=== PATIENT | male | born 1950 | race Caucasian/White ===

== ENCOUNTER 2020-06-15 06:28 | Emergency (ER) | payer OTHER, MEDICARE ==
[~2020-06-15] VITALS: Ht 172.7 cm; Wt 90.7 kg
[~2020-06-15 06:28] MED LIST: GLIP5TAB26 PO; HYDR25TA4 PO; LOSA25TA3 PO; PANT40TA45 PO; PRAM0.5T3 PO
[2020-06-15 06:36] VITALS: BP_SYST 134
--- NOTE | 2020-06-15 06:36 | NUR ---
Placed in room 8 . Placed on wood club neck whipper, blood pressure machine and pulse oximeter. To gown for exam. Side rails up.
--- NOTE | 2020-06-15 06:38 | NUR ---
ER at bedside examining patient.
--- NOTE | 2020-06-15 06:40 | NUR ---
Pt presents to ER for sob and low O2 saturation. Pt reports testing positive for COVID19 11 days ago. Pt states checking O2 saturation at home and has been 90-94 %, as per PCP recommended pt to go to ER. Pt reports SOB w/ activity, able to speak full sentence, AxOx4. Pt reports his of asthma and diabetes.
--- NOTE | 2020-06-15 06:46 | NUR ---
RT called for neb treatment.
--- NOTE | 2020-06-15 06:50 | NUR ---
tire and lube technician at bedside.
[2020-06-15] MEDS ORDERED: FURO-149 PO (07:05)
[2020-06-15] MEDS ORDERED: ZINC220T4 PO (07:05)
[2020-06-15] MEDS ORDERED: MONT10TA22 (07:05)
[2020-06-15] MEDS ORDERED: DULA0.75 SQ (07:08)
[2020-06-15] MEDS ORDERED: LOSA50TA3 PO (07:09)
--- NOTE | 2020-06-15 07:09 | NUR ---
Medication reconciliation completed with information provided by patient. Any prior medication reconciliation on file was reviewed and corrected.
--- NOTE | 2020-06-15 07:14 | NUR ---
Patient given written and verbal discharge instructions and verbalizes understanding. ER MD discussed with patient the results and treatment provided. Patient in stable condition. ID arm band removed. Rx of dexamethasone given. Patient educated on pain management and to follow up with PMD. Opportunity for questions provided and answered. Medication side effect fact sheet provided.
[2020-06-15 07:15] VITALS: BP_SYST 134
== END 2020-06-15 07:14 | disposition home or self-care (01) ==
LOC: SED 06:28
DX: R05 Cough (principal); R06.02 Shortness of breath; K21.9 Gastro-esophageal reflux disease without esophagitis; I10 Essential (primary) hypertension; E11.9 Type 2 diabetes mellitus without complications; Z85.46 Personal history of malignant neoplasm of prostate; Z79.899 Other long term (current) drug therapy
CPT/HCPCS: 36600; 71045; 82803-TC; 99284